=== PATIENT | male | born 1935 | race Caucasian/White ===

== ENCOUNTER → 2017-03-25 16:19 | Outpatient (CLI) | payer MEDICARE, BC ==
[2013-07-15 05:47] VITALS: BMI 27.2
[~2017-03-25 16:19] MED LIST: ASPIRIN325 MG PO; LEVAQUIN750 MG PO; LIPITOR10 MG PO; NAPROSYN500 MG PO; PLAVIX75 MG PO; PRAVACHOL10 MG PO; SAFFRON; VITAMIN D31000 UNIT PO; [UNRECOGNIZED DRUG - REMARK] PO
[2017-03-25 19:09] LABS: CHOL - HDL RATIO 4.1 ratio (2.3-4.9); LDL-HDL RATIO 2.6 ratio (1.5-3.5)
[2017-04-08 11:49] VITALS: BMI 28.3
== END | disposition home or self-care (01) ==
LOC: D.LABREF 16:19
PROVIDERS: Internal Medicine Interventional Cardiology
DX: E78.5 Hyperlipidemia, unspecified (principal)

== ENCOUNTER 2017-04-08 11:21 | Outpatient (CLI) | payer MEDICARE, BC ==
[~2017-04-08] VITALS: Ht 180.3 cm; Wt 92.3 kg
--- NOTE | ~2017-04-08 | OP ---
PATIENT NAME: ANTWON TIRADO MEDICAL RECORD: [id number] :37 LOCATION:D.CAT ADMISSION DATE: SURGEON: TOBI HAMILTON MD DATE OF OPERATION: 04/08/2017 PROCEDURE: Left heart catheterization, selective coronary angiography, right femoral artery approach. CATHETERS: A 5-Belizean sheath, 5/4 left and right Carlton, 5/4 pig. The procedure was well tolerated. The patient returned to osorio, sheath removed. ExoSeal device placed. FINDINGS: Left ventriculograph in 30-degree DWO view, mild global hypokinesis. Overall, function reduced, estimated EF 40%. CORONARY ANATOMY: LEFT MAIN: Left main is free of disease. LAD: Fills for a short period and is totally occluded. CIRCUMFLEX: Has a distal stenosis of about 80%. This is a left dominant system. RIGHT CORONARY ARTERY: Rudimentary, BAIG to the LAD is widely patent throughout its course without evidence of post-anastomotic stenosis. PLAN: Intervention of the circumflex momentarily. DESCRIPTION OF PROCEDURE: A 5-Belizean sheath was changed for a 6-Belizean sheath. We tried 2 separate guide catheters. We were able to transverse the lesion in the circumflex of 80% with a Whisper wire and a 3.0 x 15 mm Ellsworth balloon up to 12 atmospheres for 45 seconds. This reduced to 20%. Stents were made deployed with stent including changing guide catheters using maya wire technique, we were unable to deploy the stent. IMPRESSION: Successful FEEDER OPERATOR stenting of the circumflex lesion. COMPLICATIONS: None. ESTIMATED BLOOD LOSS: Minimal placed on Plavix was loaded in the lab. Sheath was closed with ExoSeal device. TRANSINT:[id number] Voice Confirmation ID: [id number] DOCUMENT ID: [id number] TOBI HAMILTON MD at 1144 CC: [id number] DICTATION DATE: 04/08/17 1401 GOLF COURSE ARCHITECT: 04/08/17 1522 [facility] CLI 04/08/[address] [address]
--- NOTE | ~2017-04-08 | HEMODYNAMI ---
PATIENT:ANTWON TIRADO MEDICAL RECORD: [id number] : 37 LOCATION:KAREN ADMISSION DATE: 04/08/17 Generatedon:04/08/201714:02 Patient name: ANTWON TIRADO Patient #: [id number] : 1935 Date of study: 04/08/2017 Page: Of Hemodynamic Procedure Report Patient Data Patient Demographics Procedure consent was obtained First Name: ANTWON Gender: Male Last Name: CELESTINO : 1935 [facility] Initial: LOW Age: 81 year(s) Patient #: [id number] Race: SSN: [id number] Additional ID: [id number] Contact details Address: [address] [place] [address] STREET State: [place] City: [place] Zip code: [address] Past Medical History Allergies Allergen Reaction Date Comments Reported Other allergy 04/08/2017 Penicillin, Tylenol, Tetanus, Chocolate Admission Admission Data Admission Date: 04/08/2017 Admission Time: 11:21 Lab Results Lab Result Date: 04/08/2017 Lab Result Time: 0:00 Biochemistry Name Units Result Min Max BUN mg/dl 16 --(---*)-- 7 18 Creatinine mg/dl 1 --(--*-)-- 0.6 1.3 CBC Name Units Result Min Max Hemoglobin g/dl 14.6 --(-*--)-- 13.5 17.5 Procedure Procedure Types Cath Procedure Diagnostic Procedure LHC LHC w/Coronaries w/Grafts PCI Procedure PTCA PTCA Initial Miscellaneous Procedures Moderate Sedation up to 45 minutes Procedure Description Procedure Date Procedure Date: 04/08/2017 Procedure Start Time: 13:20 Procedure End Time: 13:58 Procedure Staff Name Function Wili Kendrick MD Performing Physician Lina Herrera RT Monitor Chelsey Weathers RT Scrub Sandie Muse RN Nurse Procedure Data Cath Procedure Fluoroscopy Diagnostic fluoroscopy Total fluoroscopy Time: time: 12.6 min 12.6 min Diagnostic fluoroscopy Total fluoroscopy dose: dose: 2195 mGy 2195 mGy Contrast Material Contrast Material Type Amount (ml) Isovue 300 134 Entry Location Entry Primary Successful Side Size Upsize Upsize Entry Closure Succes sful Closure Location (Fr) 1 (Fr) 2 (Fr) Remarks Device Remarks Femoral Right 5 Fr 6 Fr Exoseal artery Short Estimated blood loss: 5 ml Diagnostic catheters Device Type Used For End Catheter Placement MULTIPACK JL 4.0 5Fr Left Coronary catheter Angiography MULTIPACK 3DRC 5Fr Right Coronary catheter Angiography MULTIPACK Pigtail 5 Fr LV Angiography catheter Procedure Complications No complications Procedure Medications Medication Administration Route Dosage 0.9% NaCl I.V. 100 ml/hr Oxygen NC 2 l/min Lidocaine 2% added to field 20 Heparin Flush Bag added to field 2 bags (1000units/500ml NS) Fentanyl I.V. 50 mcg Versed I.V. 1 mg Versed I.V. 1 mg Fentanyl I.V. 50 mcg Versed I.V. 1 mg Versed I.V. 1 mg Heparin Bolus I.V. 5000 units Integrilin (Bolus I.V. 8.5 ml 2mg/ml) Plavix P.O. 300 mg Hemodynamics Rest HGB: 14.6 (g/dl) Heart Rate: 75 (bpm) Pressure Samples Time Site Value (mmHg) Purpose Heart Use Rate(bpm) 13:27 LV 129/2,4 Snapshot 69 Gradients Valve Time Site Site Mean SEP/DFP Peak To Heart Use 1 2 (mmHg) (sec/min) Peak Rate (mmHg) (bpm) Aortic 13:28 LV AO 68 Snapshots Pre Cath Intra NCS Post Cath Vital Signs Time Heart Resp SPO2 etCO2 NIBP (mmHg) Rhythm Pain Sedation Rate (ipm) (%) (mmHg) Status Level (bpm) 13:03:44 78 16 96 0 Measuring NSR 0 (11) 10(A) , No pain 13:03:46 76 16 96 0 154/87(123) NSR 0 (11) 10(A) , No pain 13:08:10 68 23 98 34.2 145/80(124) NSR 0 (11) 10(A) , No pain 13:12:26 72 16 99 24.3 141/82(129) NSR 0 (11) 10(A) , No pain 13:16:42 72 14 98 141/77(110) NSR 0 (11) 10(A) , No pain 13:21:00 68 17 97 128/72(103) NSR 0 (11) 10(A) , No pain 13:25:10 86 16 94 136/84(116) NSR 0 (11) 10(A) , No pain 13:29:28 68 19 94 121/63(95) NSR 0 (11) 10(A) , No pain 13:33:40 67 18 97 116/67(94) NSR 0 (11) 9(A) , No pain 13:37:52 65 15 97 110/62(85) NSR 0 (11) 9(A) , No pain 13:42:00 62 16 97 117/66(87) NSR 0 (11) 9(A) , No pain 13:46:10 63 14 97 116/64(92) NSR 0 (11) 9(A) , No pain 13:50:20 63 16 97 108/67(88) NSR 0 (11) 9(A) , No pain 13:54:28 62 16 97 114/64(94) NSR 0 (11) 10(A) , No pain 13:58:38 62 16 97 113/64(86) NSR 0 (11) 10(A) , No pain Medications Time Medication Route Dose Verified Delivered Reason Not es Effectiveness by by 13:02:35 0.9% NaCl I.V. 100ml/hr Wili Hooper used for [facility]. Santi Muse RN procedure 13:02:46 Oxygen NC 2 l/min Wili Hooper Per physician St. Santi Muse RN, MD 13:02:55 Lidocaine 2% added 20ml Wili Bahy used for to vial [facility]. Santi Muse RN procedure field OVALLE 13:03:01 Heparin Flush added 2 bags Wili Hooper used for Bag to [facility] Santi Muse RN procedure (1000units/500ml field OVALLE NS) 13:16:16 Fentanyl I.V. 50 mcg Wili Hooper for sedation St. Santi Muse RN, MD 13:16:24 Versed I.V. 1 mg Wili Hooper for sedation St. Santi Muse RN, MD 13:18:48 Versed I.V. 1 mg Wili Pachecofany for sedation [facility]. Santi Muse RN, MD 13:18:57 Fentanyl I.V. 50 mcg Wili Hooper for sedation St. Santi Muse RN, MD 13:21:08 Versed I.V. 1 mg Wili Hooper for sedation St. Santi Muse RN, MD 13:23:10 Versed I.V. 1 mg Wili Hooper for sedation St. Santi Muse RN, MD 13:31:22 Integrilin I.V. 8.5 ml Wili Hooper for was te (Bolus 2mg/ml) St[facility] Santi Muse RN antiplatelet 1.5ml MD therapy 13:32:22 Heparin Bolus I.V. 5000 Wili Hooper for juan ified units St. Santi Muse RN anticoagulation by MD wang 13:59:52 Plavix P.O. 300 mg Wili Hooper for [facility] Santi Muse RN antiplatelet therapy Procedure Log Time Note 12:49:34 Informed consent obtained and on chart 12:49:40 Diagnostic Cath Status : Elective 12:50:06 Lina Herrera RT(R) sent for patient. Start room use. 12:50:08 Time tracking: Regular hours 12:50:12 Plan of Care:Hemodynamics will remain stable., Cardiac rhythm will remain stable., Comfort level will be maintained., Respiratory function will remain adequate., Patient/ family verbilizes understanding of procedure., Procedure tolerated without complication., Recovers from procedure without complications.. 12:55:24 Patient received from Pre/Post Procedure Room to CCL 2 Alert and oriented. Tansferred to table in Supine position. 12:55:25 Warm blankets applied, and anabelle hugger turned on for patient comfort. 12:55:26 Correct patient and procedure confirmed by team. 12:55:26 ECG and BP/O2 sat monitors applied to patient. 13:01:55 Vital chart was started 13:02:35 0.9% NaCl 100ml/hr I.V. was administered by Sandie Muse RN; used for procedure; 13:02:46 Oxygen 2 l/min NC was administered by Sandie Muse RN; Per physician; 13:02:55 Lidocaine 2% 20ml vial added to field was administered by Sandie Muse RN; used for procedure; 13:03:01 Heparin Flush Bag (1000units/500ml NS) 2 bags added to field was administered by Sandie Muse RN; used for procedure; 13:05:18 Baseline sample Acquired. 13:06:31 Full Disclosure recording started 13:06:45 H&P Date Dictated: 04/07/2017 Within 30 days and on chart., H&P Addendum completed by physician on day of procedure. (MUST COMPLETE FOR ALL OUTPATIENTS). 13:06:47 Pre-procedure instructions explained to patient. 13:06:47 Pre-op teaching completed and patient verbalized understanding. 13:06:49 Family in waiting room. 13:06:53 Patient NPO since Midnight. 13:07:40 Patient allergic to Other allergyPenicillin, Tylenol, Tetanus, Chocolate 13:07:56 Is the patient allergic to Iodine/contrast media? No. 13:08:04 Was the patient premedicated? No 13:08:08 Is patient on blood thinner?No 13:08:11 Patient diabetic? No. 13:08:17 Previous problem with sedation/anesthesia? No ? 13:08:20 Snore? No 13:08:21 Sleep apnea? No 13:08:22 Deviated septum? No 13:08:23 Opens mouth fully? Yes 13:08:24 Sticks out tongue? Yes 13:08:25 Airway obstruction? No ? 13:08:30 Dentures? Yes in tight 13:08:34 Pre procedure: right dorsailis pedis pulse 1+ Palpable, but thready & weak; easily obliterated 13:08:39 Pre procedure: left dorsailis pedis pulse 1+ Palpable, but thready & weak; easily obliterated 13:08:43 Patient pain scale 0/10 ?. 13:08:59 IV patent on arrival in left forearm with 0.9% NaCl at [facility]. 13:12:51 Lab Result : BUN 16 mg/dl 13:12:51 Lab Result : Hemoglobin 14.6 g/dl 13:12:51 Lab Result : Creatinine 1 mg/dl 13:12:54 Lab results completed and on chart. 13:13:11 Right groin area was prepped with chlora-prep and draped in sterile fashion 13:13:11 Alarms reviewed by R. N. 13:13:12 Sharps counted by scrub and verified by R.N. 13:13:14 Physician arrived 13:13:14 --------ALL STOP TIME OUT------ 13:13:15 Final Timeout: patient, procedure, and site verified with staff and physician. All members of the team are in agreement. 13:13:17 Right groin site verified by team. 13:13:19 Physical assessment completed. ASA score P 2 - A patient with mild systemic disease as per Wili Kendrick MD. 13:13:23 Sedation plan: IV Moderate Sedation Medication:Versed, Fentanyl 13:13:27 Use device set Femoral Dx 13:13:28 ACIST Syringe (90944) opened to sterile field. 13:13:28 Bag Decanter (2002S) opened to sterile field. 13:13:28 Medline Cath Pack ([id number]) opened to sterile field. 13:13:29 SHEATH 5FR Warrens (RQJ579) opened to sterile field. 13:13:30 DIAGNOSTIC WIRE .035 260cm J wire (377549) opened to sterile field. 13:13:31 ACIST Hand Control (74153) opened to sterile field. 13:13:31 ACIST Manifold (34002) opened to sterile field. 13:13:32 DIAGNOSTIC Multipack 5Fr catheter set (FQ2265) opened to sterile field. 13:13:33 Tegaderm 4 x 4 (1626W) opened to sterile field. 13:16:16 Fentanyl 50 mcg I.V. was administered by Sandie Muse RN; for sedation; 13:16:24 Versed 1 mg I.V. was administered by Sandie Muse RN; for sedation; 13:18:48 Versed 1 mg I.V. was administered by Sandie Muse RN; for sedation; 13:18:57 Fentanyl 50 mcg I.V. was administered by Sandie Muse RN; for sedation; 13:20:06 Procedure started. 13:20:16 Local anesthetic to right femoral artery with Lidocaine 2% by Wili Kendrick MD.INITIAL ACCESS ONLY 13:20:29 A 5 Fr sheath was inserted into the Right Femoral artery 13:21:08 Versed 1 mg I.V. was administered by Sandie Muse RN; for sedation; 13:21:21 A MULTIPACK JL 4.0 5Fr catheter was advanced over the wire and used for Left Coronary Angiography. 13:21:53 LCA angiography performed. 13:22:50 Injector settings: Ml/sec: 3, Volume: 6, 13:23:10 Versed 1 mg I.V. was administered by Sandie Muse RN; for sedation; 13:23:18 Catheter removed. 13:23:26 A MULTIPACK 3DRC 5Fr catheter was advanced over the wire and used for Right Coronary Angiography. 13:24:36 RCA angiography performed. 13:24:39 Injector settings: Ml/sec: 3, Volume: 6, 13:25:01 BAIG angiography performed. 13:25:26 Injector settings: Ml/sec: 3, Volume: 6, 13:26:11 Catheter removed. 13:26:16 A MULTIPACK Pigtail 5 Fr catheter was advanced over the wire and used for LV Angiography. 13:27:30 LV hemodynamics recorded. 13:27:31 LV gram done using DOW 13:27:34 Injector settings: Ml/sec: 5, Volume: 15, 13:28:17 EF : 40 % 13:29:43 WHISPER 300cm guide wire ([id number]) opened to sterile field. 13:29:45 SHEATH 6FR Warrens (OBH033) opened to sterile field. 13:29:45 INFLATOR Merit BasixCompak (TO7734) opened to sterile field. 13:29:46 GUIDE 6FR EBU 3.5 catheter (GF2YMS32) opened to sterile field. 13:30:07 Catheter removed. 13:30:08 Proceeding to intervention. 13:30:16 Sheath upsized to a 6 Fr Short. 13:30:25 6 Fr ebu 3.5 guide catheter was inserted over the wire 13:30:53 whisper wire advanced. 13:30:54 Wire advanced across lesion. 13:31:22 Integrilin (Bolus 2mg/ml) 8.5 ml I.V. was administered by Sandie Muse RN; for antiplatelet therapy; waste 1.5ml 13:32:22 Heparin Bolus 5000 units I.V. was administered by Sandie Muse RN; for anticoagulation; verified by 13:36:46 The INTEGRITY OTW 3.5 X 12 stent ([id number]) was advanced then removed because of failure to cross lesion 13:40:31 The EMERGE OTW 3.0 x 15 stent ([id number]) was advanced and then removed because of failure to cross lesion 13:40:39 WHISPER 300cm guide wire ([id number]) opened to sterile field. 13:40:50 whisper wire advanced. 13:43:39 Wire removed. 13:43:42 Guide catheter removed. 13:43:57 GUIDE 6FR EBU 4.0 guide catheter ([id number]) opened to sterile field. 13:46:20 tech notes one whisper wire damaged; new whisper wire opened 13:46:26 WHISPER 300cm guide wire ([id number]) opened to sterile field. 13:48:27 Wire removed. 13:48:50 CHOICE PT Extra Support J 300cm guide wire ([id number]) opened to sterile field. 13:49:06 choice pt wire advanced. 13:49:56 Inflation number: 1 A EMERGE OTW 3.0 x 15 stent ([id number]) was prepped and advanced across the Dist CX, then inflated to 10 RACHEL for 0:30 (min:sec). 13:51:46 Balloon removed over the wire. 13:53:34 whisper wire advanced 13:54:53 The EMERGE OTW 3.0 x 15 stent ([id number]) was advanced and then removed because of failure to cross lesion 13:54:59 Balloon removed over the wire. 13:54:59 Wire removed. 13:55:00 Guide catheter removed. 13:55:59 EXOSEAL 6Fr (EX600) opened to sterile field. 13:56:09 Sheath removed intact; hemostasis achieved with Exoseal to the Right Femoral artery. 13:56:11 Procedure ended.(Physican Out) 13:56:54 Fluoroscopy time 12.60 minutes. 13:57:00 Fluoroscopy dose: 2195 mGy 13:57:00 Flurop Dose total: 2195 13:57:16 Contrast amount:Isovue 300 134ml. 13:57:52 Sharps counted by scrub and verified by R.N. 13:57:54 Insertion/operative site no bleeding no hematoma. 13:57:57 Post-op/insertion site Right Femoral artery dressed using a 4 x 4 and Tegaderm. 13:58:00 Post right femoral artery:stable 13:58:01 Post Procedure Pulses reassessed and unchanged 13:58:05 Post procedure rhythm: unchanged. 13:58:08 Estimated blood loss: 5 ml 13:58:10 Post procedure instruction explained to patient.Patient verbalizes understanding. 13:58:10 Patient needs reinforcement of post procedure teaching. 13:58:34 Procedure type changed to Cath procedure, Diagnostic procedure, LHC, LHC w/Coronaries w/Grafts, PCI procedure, PTCA, PTCA Initial, Miscellaneous Procedures, Moderate Sedation up to 45 minutes 13:58:34 Procedure and supply charges have been captured, reviewed, submitted and are correct. 13:58:39 Procedure Complication : No complications 13:58:41 Vital chart was stopped 13:58:42 See physician's report for complete and final results. 13:58:44 Report given to Pre/Post Procedure Room. 13:58:47 Patient transfered to Pre/Post Procedure Room with Stretcher. 13:58:50 Procedure ended. 13:58:50 Full Disclosure recording stopped 13:59:02 ACC-PCI Only Patient was given prescriptions, or instructed by Wili Kendrick MD to start/continue the following medications upon discharge: Plavix 13:59:04 End room use (Document Last) 13:59:52 Plavix 300 mg P.O. was administered by Sandie Muse RN; for antiplatelet therapy; Intervention Summary Intervention Notes Time ActionType Lesion and Equipment Action# Pressure Duration Attributes Used 13:36:46 Discard INTEGRITY Stent OTW 3.5 X 12 stent ([id number]) 13:40:31 Discard EMERGE OTW Balloon 3.0 x 15 stent ([id number]) 13:49:56 Inflate Dist CX EMERGE OTW 1 10 00:30 balloon 3.0 x 15 stent ([id number]) 13:54:53 Discard EMERGE OTW Balloon 3.0 x 15 stent ([id number]) Device Usage Item Name Manufacture Quantity Catalog Number Hospital Part Current Min imal Lot# / Charge Number Stock Stock Serial# Code ACIST Acist 1 65642 435411 140391 133722 20 Syringe Medical (72801) Systems Inc Bag Decanter Microtek 1 948732 51959 173960 5 () Medical Inc. Medline Cath Cardinal 1 [id number] 106399 23857 135393 5 Pack Health ([id number]) SHEATH 5FR Terumo 1 PRR885 968206 835260 907262 40 Warrens (RGN665) DIAGNOSTIC St [place] 1 303720 763993 972324 208980 30 WIRE .035 260cm J wire (642830) ACIST Hand Acist 1 92973 137153 176022 315894 5 Control Medical (57694) Systems Inc ACIST Acist 1 20713 747243 205715 116816 5 Manifold Medical (73337) Systems Inc DIAGNOSTIC Cardinal 1 RL2511 418937 76600 373825 30 Multipack Health 5Fr catheter set (RD8919) Tegaderm 4 x 3M 1 1626W 901037 572747 573342 5 4 (1626W) MULTIPACK JL Cardinal 1 889120 5 4.0 5Fr Health catheter MULTIPACK Cardinal 1 620667 5 3DRC 5Fr Health catheter MULTIPACK Cardinal 1 779213 5 Pigtail 5 Fr Health catheter WHISPER Kimbrough 3 [id number] 006498 860139 589518 5 300cm guide Vascular wire ([id number]) SHEATH 6FR Terumo 1 EMK584 375418 857681 106260 40 Warrens (WAZ645) INFLATOR Squid Facil 1 HX5490 437321 078703 531269 15 Squid Facil Medical BasixCompak (BQ5506) GUIDE 6FR Medtronic 1 DT0TLT94 243456 07138 126762 3 EBU 3.5 catheter (VD1FCX97) INTEGRITY Medtronic 1 [id number] 726090 406334 4 [id number] OTW 3.5 X 12 stent ([id number]) EMERGE OTW [place] 1 [id number] 422574 546060 790436 5 [id number] 3.0 x 15 Scientific stent ([id number]) GUIDE 6FR Medtronic 1 QV2MZC74 786135 43766 568944 1 EBU 4.0 guide catheter (IZ4VGL57) CHOICE PT Alexandria 1 [id number] 374174 902052 982566 5 [id number] Extra Scientific Support J 300cm guide wire (6381960O2) EXOSEAL 6Fr Cardinal 1 EX600 628026 215490 664329 10 (EX600) Health Signature Audit [place] Stage Time Signature Unsigned Intra-Procedure 04/08/2017 Lina Herrera 2:02:13 PM RT(R) Signatures Monitor : Lina Herrera RT Signature : Date : Time : [place] [id number] [place] [address]
[~2017-04-08 11:21] MED LIST changes: -LIPITOR10 MG PO; -SAFFRON; -VITAMIN D31000 UNIT PO
[2017-04-08] MEDS ORDERED: VITAMIN D31000 UNIT PO (11:36)
[2017-04-08] MEDS ORDERED: SAFFRON (11:37)
[2017-04-08 11:49] VITALS: BP 167/82; Ht 180.3 cm; Wt 92.3 kg
[2017-04-08 12:03] LABS: BASOPHILS 0.1 % (0-2); EOSINOPHILS 3.6 % (0-7); HEMATOCRIT 44.6 % (42.0-54.0); HEMOGLOBIN 14.6 g/dL (13.5-17.5); IMMATURE GRANULOCYTES 0.3 % (0-5); LYMPHOCYTES 36.9 % (15-50); MCH 31.1 pg (26.0-34.0); MCHC 32.7 g/dL (31.0-37.0); MCV 94.9 fL (80.0-100.0); MEAN PLATELET VOLUME 10.6 fL (7.4-10.4); MONOCYTES 5.2 % (2-11); NEUTROPHILS 53.9 % (40-80); PLATELET COUNT 161 10x3/uL (130-400); RDW 13.5 % (11.5-14.5); WBC 7.3 10x3/uL (4.8-10.8)
[2017-04-08 12:11] LABS: CALC OSMOLALITY 279 mosm/kg (275-300); CALCIUM 10.3 mg/dL (8.5-10.1); CARBON DIOXIDE 28.4 mmol/L (21.0-32.0); CHLORIDE - SERUM 103 mmol/L (98-107); GLUCOSE 114 mg/dL (74-106); POTASSIUM - SERUM 3.9 mmol/L (3.5-5.1); SODIUM 139 mmol/L (136-145); UREA NITROGEN 16 mg/dL (7-18); eGFR NON AFRICAN AMERICAN 76 mL/min (90-120)
[2017-04-08] MEDS ORDERED: PLAVIX75 MG PO (14:25)
[2017-04-08] MEDS ORDERED: LIPITOR10 MG PO (14:27)
== END 2017-04-08 18:00 | disposition home or self-care (01) ==
LOC: D.CATH 11:21
PROVIDERS: Internal Medicine Interventional Cardiology
DX: I25.119 Atherosclerotic heart disease of native coronary artery with unspecified angina pectoris (principal); Z01.812 Encounter for preprocedural laboratory examination; Z95.1 Presence of aortocoronary bypass graft

== ENCOUNTER → 2018-06-21 10:16 | Outpatient (CLI) | payer MEDICARE, BC ==
[2017-04-08 11:49] VITALS: BMI 28.3
[~2018-06-21 10:16] MED LIST changes: +LIPITOR10 MG PO; +SAFFRON; +VITAMIN D31000 UNIT PO
--- NOTE | 2018-06-24 12:17 | EC ---
PATIENT:ANTWON TIRADO DATE OF SERVICE: 06/21/18 SEX: M MEDICAL RECORD: [id number] DATE OF : 37 LOCATION:[facility] AGE OF PATIENT: 82 ADMISSION DATE: 06/21/18 REFERRING PHYSICIAN: INTERPRETING PHYSICIAN: TOBI HAMILTON MD ECHOCARDIOGRAM REPORT ECHO CHARGES 4 ECHO COMPLETE Date: 06/21/18 CLINICAL DIAGNOSIS: CARDIOMYOPATHY H/O HTN/CAD/CABG/PACEMAKER ECHOCARDIOGRAPHIC MEASUREMENTS (adult normal given) AC root (d.<3.7cm) 3.1 cm LV Septum d (<1.2 cm> 1.3 cm Valve Excursion 1.3 cm LV Septum (systole) 2.1 cm Left Atria (s.<4.0cm> 5.5 cm LVPW d(<1.2cm) 1.2 cm RV (d.<2.3cm) 2.8 cm LVPW (sytole) 1.7 cm LV diastole(<5.6CM) 7.2 cm MV E-F(>70mm/sec) cm LV systole 5.8 cm LVOT Diameter 2.3 cm MV exc.(>10mm) cm Est.ejection fraction (50-75%) % DOPPLER: LVIT cm/sec A 156 cm/sec E 60.0 cm/sec LA cm/sec RVSP 34.3 mmHg LVOT 72.0 cm/sec AOP1/2T m/s Asc. Ao 200 cm/sec RVOT 42.0 cm/sec RA cm/sec PA 87.0 cm/sec AV Gradient Peak 16.0 mmHg AV Mean 8.1 mmHg AV Area 1.6 cm MV Gradient Peak 11.0 mmHg MV Mean 2.2 mmHg MV Area cm COMMENTS: OP - HC Rn Cardiology: 1 CHRISTINA PIERO Framing Mill Operator Helper: 3 Dr. Kendrick TAPE# PACS Pericardial Effusion N DATE OF SERVICE: Adequate 2D, color flow, spectral Doppler, and M-Mode. LVH is present. LV internal dimension is moderate dilated at 5.0 cm. LV is globally hypokinetic, reduced EF, estimated at 20% to 25%. Aortic valve is sclerosed without evidence of stenosis on Doppler interrogation. Left atrium dilated at 5.5 cm. Mitral valve shows no prolapse. Mild MR. Right-sided chamber size is grossly normal. Moderate TR. TRANSINT:[id number] Voice Confirmation ID: [id number] DOCUMENT ID: [id number] ECHOCARDIOGRAM REPORT [id number] ANTWON TIRADO,TOBI Crowe MD at 1217 CC: [id number] DICTATION DATE: 06/21/18 1519 HANDLE MACHINE OPERATOR: 06/22/18 0156 DEP CLI 06/21/18 [place] [id number]
== END | disposition home or self-care (01) ==
LOC: D.HCCARDIO 10:00
PROVIDERS: ATTEND Internal Medicine Interventional Cardiology
DX: I10 Essential (primary) hypertension (principal)

== ENCOUNTER 2019-02-01 02:02 | Outpatient (CLI) | payer MEDICARE, BC ==
[~2019-02-01] VITALS: Ht 180.3 cm; Wt 86.4 kg
--- NOTE | ~2019-02-01 | HEMODYNAMI ---
PATIENT:ANTWON TIRADO MEDICAL RECORD: [id number] : 37 [facility].[address] [facility]# [id number] ADMISSION DATE: 02/01/19 Generatedon:02/01/201914:37 Patient name: ANTWON TIRADO Patient #: [id number] : 1935 Date of study: 02/01/2019 Page: Of Hemodynamic Procedure Report Patient Data Patient Demographics Procedure consent was obtained First Name: ANTWON Gender: Male Last Name: CELESTINO : 1935 [facility] Initial: LOW Age: 83 year(s) Patient #: [id number] Race: SSN: [id number] Additional ID: [id number] Contact details Address: [address] [place] [address] [address]REET State: [place] City: [place] Zip code: [address] Past Medical History Allergies Allergen Reaction Date Comments Reported Other allergy 04/08/2017 Penicillin, Tylenol, Tetanus, Chocolate Other allergy 02/01/2019 penicillins, acetametaphin, tetanus vaccine, chocolate Admission Admission Data Admission Date: 02/01/2019 Admission Time: 2:32 Admit Source: Other Insurance Payor: Medicare, Room #: D.2116 Private health insurance Height (in.): 70.87 BSA: 2.06 (m2) Height (cm.): 180 BMI: 26.54 (kg/m2) Weight (lbs.): 189.6 Weight (kg.): 86 Lab Results Lab Result Date: 02/01/2019 Lab Result Time: 0:00 Biochemistry Name Units Result Min Max BUN mg/dl 17 --(---*)-- 7 18 Creatinine mg/dl 1.3 --(---*)-- 0.6 1.3 eGFR ml/min 56 *-(----)-- 90 120 NONAFRICAN CBC Name Units Result Min Max Hemoglobin g/dl 14.6 --(-*--)-- 13.5 17.5 Procedure Procedure Types Cath Procedure Diagnostic Procedure C [facility] w/Coronaries w/Grafts FFR/IVUS FFR Initial Sedation Charges Moderate Sedation up to 30 minutes PCI Procedure Coronary Stent Coronary Stent Initial Procedure Description Procedure Date Procedure Date: 02/01/2019 Procedure Start Time: 11:27 Procedure End Time: 11:55 Procedure Staff Name Function Lina Herrera RT Monitor Leo Chris MD Performing Physician Chelsey Weathers RT Scrub Donna Wilson RN Nurse Indication Abnormal enzymes Procedure Data Cath Procedure Fluoroscopy Diagnostic fluoroscopy Total fluoroscopy Time: 6.5 time: 6.5 min min Diagnostic fluoroscopy Total fluoroscopy dose: dose: 1203 mGy 1203 mGy Contrast Material Contrast Material Type Amount (ml) Isovue 300 114 Entry Location Entry Primary Successful Side Size Upsize Upsize Entry Closure Succes sful Closure Location (Fr) 1 (Fr) 2 (Fr) Remarks Device Remarks Femoral Right 6 Fr Exoseal artery Short Estimated blood loss: 5 ml Diagnostic catheters Device Type Used For End Catheter Placement MULTIPACK Pigtail 5 Fr LV Angiography catheter MULTIPACK JL 4.0 5Fr Left Coronary catheter Angiography MULTIPACK 3DRC 5Fr Multi-vessel catheter Angiography Procedure Complications No complications Procedure Medications Medication Administration Route Dosage 0.9% NaCl I.V. 100 ml/hr Oxygen etCO2 Nasal cannula 2 l/min Lidocaine 2% added to field 20 Heparin Flush Bag added to field 2 bags (1000units/500ml NS) Versed I.V. 2 mg Fentanyl I.V. 50 mcg Heparin Bolus I.V. 4000 units Integrilin (Bolus I.V. 6.9 ml 2mg/ml) Integrilin (Bolus wasted 3.1 ml 2mg/ml) Lopressor I.V. 5 mg Fentanyl I.V. 50 mcg Hemodynamics Rest BSA: 2.06 (m2) HGB: 14.6 (g/dl) O2 Consumption: Estimated: 242.31 (ml/min) O2 Co nsumption indexed: Estimated:117.63 (ml/min/m) Heart Rate: 80 (bpm) Snapshots Pre Cath Intra NCS Post Cath Vital Signs Time Heart Resp SPO2 etCO2 NIBP (mmHg) Rhythm Pain Sedation Rate (ipm) (%) (mmHg) Status Level (bpm) 11:14:40 77 15 98 25.6 171/91(135) Paced 0 (11) 10(A) , No pain 11:18:50 69 15 98 32.4 130/90(118) Paced 0 (11) 10(A) , No pain 11:23:04 70 13 97 22.6 146/69(116) Paced 0 (11) 9(A) , No pain 11:27:22 70 13 98 21.8 151/76(124) Paced 0 (11) 9(A) , No pain 11:31:36 69 14 97 19.7 142/92(104) Paced 0 (11) 9(A) , No pain 11:35:52 71 13 97 9.8 150/80(120) Paced 0 (11) 10(A) , No pain 11:40:10 73 12 97 20.3 148/81(122) Paced 0 (11) 9(A) , No pain 11:44:28 74 11 97 22.6 139/77(115) Paced 0 (11) 10(A) , No pain 11:48:44 72 12 95 8.2 154/77(127) Paced 0 (11) 10(A) , No pain 11:53:04 69 12 95 8.2 150/80(129) Paced 0 (11) 10(A) , No pain Medications Time Medication Route Dose Verified Delivered Reason Notes Effectiveness by by 11:10:51 0.9% NaCl I.V. 100 Leo Donna used for ml/hr Dot Wilson supervisor commissary production 11:10:59 Oxygen etCO2 2 Leo Donna used for Nasal l/min Dot Wilson procedure cannula RN 11:11:04 Lidocaine 2% added 20ml Leo Bailey for local to vial Dot Chris MD anesthetic field 11:11:08 Heparin Flush added 2 Leo Leo used for Bag to bags Dot Chris MD procedure (1000units/500ml field NS) 11:21:31 Versed I.V. 2 mg Leo Donna for sedation Dot Wilson RN 11:21:41 Fentanyl I.V. 50 Leo Donna for sedation mcg Dot Wilson RN 11:33:53 Heparin Bolus I.V. 4000 Leo Hinesyla for verif ied units Dot Wilson anticoagulation with Dr. RAMON Chris 11:34:11 Integrilin I.V. 6.9 Leo Donna for (Bolus 2mg/ml) ml Dot Wilson antiplatelet RN therapy 11:34:23 Integrilin wasted 3.1 Leo Sanchesa for (Bolus 2mg/ml) ml Dot Wilson antiplatelet RN therapy 11:34:30 Lopressor I.V. 5 mg Leo Sanchesa used for Dot Wilson supervisor commissary production 11:36:32 Fentanyl I.V. 50 Leo Hinesyla for sedation mcg Dot Wilson equipment specialist Log Time Note 11:06:00 Chelsey Weathres RT(R) sent for patient. Start room use. 11:06:43 3a) 45-59 Moderately reduced kidney function. 11:06:55 Maximum allowable contrast dose (3.7 X eGFR X 0.75)155 ml. 11:07:06 Procedure Status Urgent Heart Cath (IP). 11:07:18 Diagnostic Cath Status : Urgent 11:07:49 Indication : Abnormal enzymes 11:09:18 Patient Height : 70.87 inches 11:09:21 Patient Weight : 189.6 lbs 11:09:26 Admit Source: Other 11:09:31 Insurance Payor : Private health insurance, Medicare 11:10:51 0.9% NaCl 100 ml/hr I.V. was administered by Donna Wilson RN; used for procedure; Verbal order read back and verified. 11:10:59 Oxygen 2 l/min etCO2 Nasal cannula was administered by Donna Wilson RN; used for procedure; Verbal order read back and verified. 11:11:04 Lidocaine 2% 20ml vial added to field was administered by Leo Chris MD; for local anesthetic; Verbal order read back and verified. 11:11:08 Heparin Flush Bag (1000units/500ml NS) 2 bags added to field was administered by Leo Chris MD; used for procedure; Verbal order read back and verified. 11:13:05 Lab Result : eGFR NONAFRICAN 56 ml/min 11:13:05 Lab Result : Hemoglobin 14.6 g/dl 11:13:05 Lab Result : BUN 17 mg/dl 11:13:05 Lab Result : Creatinine 1.3 mg/dl 11:13:08 Time tracking: Regular hours (M-F 7:00 - 5:00) 11:13:13 Plan of Care:Hemodynamics will remain stable., Cardiac rhythm will remain stable., Comfort level will be maintained., Respiratory function will remain adequate., Patient/ family verbilizes understanding of procedure., Procedure tolerated without complication., Recovers from procedure without complications.. 11:13:20 Patient received from Med II to CCL 2 Alert and oriented. Tansferred to table in Supine position. 11:13:22 Signed procedure consent form obtained from patient. 11:13:25 Warm blankets applied, and anabelle hugger turned on for patient comfort. 11:13:26 Correct patient and procedure confirmed by team. 11:13:27 ECG and BP/O2 sat monitors applied to patient. 11:13:28 Vital chart was started 11:13:30 Baseline sample Acquired. 11:13:33 Full Disclosure recording started 11:13:38 H&P Date Dictated: 02/01/2019 New H&P dictated by physician.. 11:13:51 Pre-procedure instructions explained to patient. 11:13:52 Pre-op teaching completed and patient verbalized understanding. 11:13:54 Family in waiting room. 11:13:55 Patient NPO since Dinner. 11:14:33 Patient allergic to Other allergypenicillins, acetametaphin, tetanus vaccine, chocolate 11:14:35 Is the patient allergic to Iodine/contrast media? No. 11:14:37 Was the patient premedicated? Yes 11:14:38 Is patient on blood thinner?Yes 11:14:41 ACC The patient was administered the following blood thiners within the last 24 hours: ACCPlavix 11:14:44 Patient diabetic? No. 11:14:47 Previous problem with sedation/anesthesia? No ? 11:14:49 Snore? Yes 11:14:50 Sleep apnea? No 11:14:51 Opens mouth fully? Yes 11:14:51 Deviated septum? No 11:14:52 Sticks out tongue? Yes 11:14:55 Airway obstruction? No ? 11:15:04 Dentures? Yes partials in tight 11:15:08 Pre procedure: right dorsailis pedis pulse 2+ Normal; easily identifiable; not easily obliterated 11:15:10 Pre procedure: left dorsailis pedis pulse 2+ Normal; easily identifiable; not easily obliterated 11:15:13 Patient pain scale 0/10 ?. 11:17:19 IV patent on arrival in left forearm with 0.9% NaCl at [facility]. 11:17:22 Lab results completed and on chart. 11:20:36 Risk of Mortality: 1.7 11:20:39 Risk of blood transfusion: 2.3 11:20:43 Risk of CLARISSA: 9.6 11:20:52 Right groin area was prepped with chlora-prep and draped in sterile fashion 11:20:53 Sharps counted by scrub and verified by R.N. 11:20:53 Alarms reviewed by R. N. 11:20:55 Physician arrived 11:20:56 Final Timeout: patient, procedure, and site verified with staff and physician. All members of the team are in agreement. 11:20:56 --------ALL STOP TIME OUT------ 11:20:58 Right groin site verified by team. 11:21:02 Fire Safety Assessment: A--An alcohol-based skin anteseptic being used preoperatively., C--Open oxygen or nitrous oxide is being used., D--An ESU, laser, or fiber-optic light is being used. 11:21:05 Physical assessment completed. ASA score P 2 - A patient with mild systemic disease as per Leo Chris MD. 11:21:10 Sedation plan: IV Moderate Sedation Medication:Versed, Fentanyl 11:21:31 Versed 2 mg I.V. was administered by Donna Wilson RN; for sedation; Verbal order read back and verified. 11:21:41 Fentanyl 50 mcg I.V. was administered by Donna Wilson RN; for sedation; Verbal order read back and verified. 11:21:51 Use device set Femoral Dx 11:21:52 Bag Decanter () opened to sterile field. 11:21:52 ACIST Syringe (33813) opened to sterile field. 11:21:53 Medline Cath Pack ([id number]) opened to sterile field. 11:21:54 ACIST Hand Control (23710) opened to sterile field. 11:21:55 ACIST Manifold (92128) opened to sterile field. 11:21:56 DIAGNOSTIC Multipack 5Fr catheter set ([id number]) opened to sterile field. 11:21:57 Tegaderm 4 x 4 (1626W) opened to sterile field. 11:21:58 EMERALD Guide Wire (502-559) opened to sterile field. 11:22:08 SHEATH 6FR [place] (ICJ368) opened to sterile field. 11:27:31 Procedure started. 11::34 Local anesthetic to right femoral artery with Lidocaine 2% by Leo Chris MD.INITIAL ACCESS ONLY 11:27:43 A 6 Fr Short sheath was inserted into the Right Femoral artery 11::47 A MULTIPACK Pigtail 5 Fr catheter was advanced over the wire and used for LV Angiography. 11:28:50 LV hemodynamics recorded. 11::52 LV gram done using DOW 11::54 Injector settings: Ml/sec: 5, Volume: 15, 11:29:01 EF : 25 % 11:29:02 Catheter removed. 11:29:26 A MULTIPACK JL 4.0 5Fr catheter was advanced over the wire and used for Left Coronary Angiography. 11:29:58 LCA angiography performed. 11:30:02 Injector settings: Ml/sec: 3, Volume: 6, 11:31:16 Catheter removed. 11:31:20 A MULTIPACK 3DRC 5Fr catheter was advanced over the wire and used for Multi-vessel Angiography. 11:31:27 BAIG to LAD angiography performed. 11:31:34 RCA angiography performed. 11:31:37 ACCDominant side:Right 11::37 Injector settings: Ml/sec: 3, Volume: 6, 11:32:07 [place] Verrata Plus pressure wire (61207R) opened to sterile field. 11:32:08 INFLATOR Merit BasixCompak (AX0143) opened to sterile field. 11:32:15 Catheter removed. 11:32:16 Proceeding to intervention. 11:32:30 GUIDE 6FR XB 4.0 catheter ([id number]) opened to sterile field. 11:32:45 6 Fr xb 4 guide catheter was inserted over the wire 11:33:00 FFR/IFR wire advanced. 11:33:02 Baseline FFR 1. 11:33:53 Heparin Bolus 4000 units I.V. was administered by Donna Wilson RN; for anticoagulation; verified with Dr. Chris Verbal order read back and verified. 11:34:11 Integrilin (Bolus 2mg/ml) 6.9 ml I.V. was administered by Donna Wilson RN; for antiplatelet therapy; Verbal order read back and verified. 11:34:23 Integrilin (Bolus 2mg/ml) 3.1 ml wasted was administered by Donna Wilson RN; for antiplatelet therapy; Verbal order read back and verified. 11:34:30 Lopressor 5 mg I.V. was administered by Donna Wilson RN; used for procedure; Verbal order read back and verified. 11:34:43 Wire advanced across lesion. 11:36:32 Fentanyl 50 mcg I.V. was administered by Donna Wilson RN; for sedation; Verbal order read back and verified. 11:38:06 mCirc lesion measured at 0.92 with IFR 11:38:18 Wire removed. 11:38:28 CHOICE PT Extra Support 182cm wire ([id number]) opened to sterile field. 11:38:59 choicept wire advanced. 11:40:38 Wire advanced across lesion. 11:44:32 Inflate balloon Inflation number: 1 A Mozec Rx 3.5 x 20 balloon was prepped and advanced across the Prox CX , then inflated to 21 RACHEL for 0:10 (min:sec) . 11:44:38 Inflation number: 2 The Mozec Rx 3.5 x 20 balloon was reinflated across the Prox CX , to 21 RACHEL for 0:10 (min:sec) . 11:44:47 Balloon removed over the wire. 11:45:51 The COBRA RX 2.5 X 15 Stent was advanced then removed because of failure to cross lesion 11:47:02 ACT drawn and resulted at 346 seconds. (normal therapeutic range 180-240 seconds). 11:47:37 Pre PCI Site: [place] dCirc has 90% stenosis. 11:47:37 ACC Pre-intervention CHELSEA Flow is 3. 11:47:38 Place stent Inflation Number: 1 A INTEGRITY RX 2.5 x 14 stent ([id number]) was prepped and advanced across the Dist CX 90. The stent was deployed at 15 RACHEL for 0:10 (min:sec) 0. 11:47:42 Post PCI Site: [place] dCirc has 0% stenosis. 11:47:42 ACC Post-intervention CHELSEA Flow is 3. 11:47:43 Stent catheter was removed intact over wire. 11:47:44 Guide catheter removed. 11:47:44 Wire removed. 11:47:51 EXOSEAL 6Fr (EX600) opened to sterile field. 11:48:11 Sheath removed intact; hemostasis achieved with Exoseal to the Right Femoral artery. 11:48:14 Procedure ended.(Physican Out) 11:54:06 Fluoroscopy time 06.50 minutes. 11:54:10 Fluoroscopy dose: 1203 mGy 11:54:10 Flurop Dose total: 1203 11:54:17 Dose Area Product 65249 mGy/cm. 11:54:32 Contrast amount:Isovue 300 114ml. 11:54:41 Maximum allowable dose exceeded? No. 11:54:42 Sharps counted by scrub and verified by R.N. 11:54:44 Insertion/operative site no bleeding no hematoma. 11:54:47 Post-op/insertion site Right Femoral artery dressed using a 4 x 4 and Tegaderm. 11:54:50 Post right femoral artery:stable 11:54:52 Post Procedure Pulses reassessed and unchanged 11:54:55 Post procedure rhythm: unchanged. 11:54:58 Estimated blood loss: 5 ml 11:55:00 Patient needs reinforcement of post procedure teaching. 11:55:00 Post procedure instruction explained to patient.Patient verbalizes understanding. 11:55:17 Procedure type changed to Cath procedure, Diagnostic procedure, LHC, C w/Coronaries w/Grafts, FFR/IVUS, FFR Initial, Sedation Charges, Moderate Sedation up to 30 minutes, PCI procedure, Coronary Stent, Coronary Stent Initial 11:55:18 Procedure and supply charges have been captured, reviewed, submitted and are correct. 11:55:22 Procedure Complication : No complications 11:55:24 Vital chart was stopped 11:55:26 [facility] Findings: MVD- PCI performed (see procedure note) 11:55:28 See physician's report for complete and final results. 11:55:28 Operative report dictated upon procedure completion. 11:55:32 Report given to [facility]. 11:55:34 Patient transfered to [facility] with Stretcher. 11:55:38 Full Disclosure recording stopped 11:55:38 Procedure ended. 11:55:47 ACC-PCI Only Patient was given prescriptions, or instructed by Leo Chris MD to start/continue the following medications upon discharge: Plavix 11:55:49 End room use (Document Last) 11:57:01 End room use (Document Last) 11:57:44 End room use (Document Last) Intervention Summary Intervention Notes Time ActionType Lesion and Equipment Action# Pressure Duration Attributes Used 11:44:32 Inflate Prox CX Mozec Rx 3.5 1 21 00:10 balloon x 20 balloon 11:44:38 Reinflate Prox CX Mozec Rx 3.5 2 21 00:10 balloon x 20 balloon 11:45:51 Discard COBRA RX 2.5 Stent X 15 Stent 11:47:38 Place stent Dist CX INTEGRITY RX 1 15 00:10 2.5 x 14 stent ([id number]) Device Usage Item Name Manufacture Quantity Catalog Number Hospital Part Current Minimal Lot# / Charge Number Stock Stock Serial# Code ACIST Syringe Acist 1 98253 429455 750106 299328 20 (30615) Medical Systems Inc Bag Decanter Microtek 1 2001S 019459 70511 924270 5 (2001S) Medical Inc. Medline Cath Medline 1 [id number] 510130 84292 812980 5 Pack ([id number]) ACIST Hand Acist 1 18192 150781 682937 797096 5 Control Medical (60695) Systems Inc ACIST Manifold Acist 1 67549 143753 606708 314645 5 (13849) Medical Systems Inc DIAGNOSTIC Cardinal 1 TF2410 506415 84466 837237 30 Multipack 5Fr Health catheter set (RK9465) Tegaderm 4 x 4 3M 1 1626W 114047 843651 236236 5 (1626W) EMERALD Guide Cardinal 1 502-455 048852 924686 800974 5 Wire (502-455) Health SHEATH 6FR Terumo 1 SGD661 591123 394188 928317 40 [place] (MXW539) MULTIPACK Cardinal 1 773403 5 Pigtail 5 Fr Health catheter MULTIPACK JL Cardinal 1 535696 5 4.0 5Fr Health catheter MULTIPACK 3DRC Cardinal 1 945559 5 5Fr catheter Health [place] 1 40967B 380058 066882582 528889 5 Verrata Plus pressure wire (26515L) INFLATOR Merit Merit 1 QN4542 963044 473984 134339 15 [employer] P.[employer].azIntivix Medical (WW2078) GUIDE 6FR XB Cardinal 1 [id number] 286191 185804 157778 2 4.0 catheter Health (89712802) CHOICE PT [place] 1 [id number] 987519 680725 441430 5 Extra Support Scientific 182cm wire ([id number]) Mozec Rx 3.5 x Cardinal 1 [id number] 141881 21440 083749 5 UMOD46 20 balloon Health COBRA RX 2.5 X Celonova 1 802672 [id number] 3992487 8 [id number] 15 stent Biosciences () INTEGRITY RX Medtronic 1 [id number] 878873 708927 610846 5 [id number] 2.5 x 14 stent ([id number]) EXOSEAL 6Fr Cardinal 1 EX600 162956 331260 848702 10 (EX600) Health Signature Audit [place] Stage Time Signature Unsigned Intra-Procedure 02/01/2019 Lina Herrera 11:57:01 AM RT(R) Intra-Procedure 02/01/2019 Donna Wilson 11:57:44 AM RN Intra-Procedure 02/01/2019 Leo Wilson RN 11:58:05 AM 02/01/2019 2:34:44 PM Intra-Procedure 02/01/2019 Donna Wilson 2:36:54 PM RN Intra-Procedure 02/01/2019 Leo Chris 2:37:[address] [address]
[2019-02-01 02:36] LABS: BASOPHILS 0.1 % (0-2); EOSINOPHILS 3.3 % (0-7); HEMATOCRIT 44.4 % (42.0-54.0); HEMOGLOBIN 14.6 g/dL (13.5-17.5); IMMATURE GRANULOCYTES 0.1 % (0-5); LYMPHOCYTES 46.4 % (15-50); MCH 31.4 pg (26.0-34.0); MCHC 32.9 g/dL (31.0-37.0); MCV 95.5 fL (80.0-100.0); MEAN PLATELET VOLUME 10.3 fL (7.4-10.4); MONOCYTES 6.9 % (2-11); NEUTROPHILS 43.2 % (40-80); PLATELET COUNT 159 10x3/uL (130-400); RBC 4.65 10x6/uL (4.20-6.10)
[2019-02-01 02:50] LABS: CALC OSMOLALITY 288 mosm/kg (275-300); CALCIUM 10.1 mg/dL (8.5-10.1); CARBON DIOXIDE 28.3 mmol/L (21.0-32.0); CHLORIDE - SERUM 105 mmol/L (98-107); CREATININE - SERUM 1.3 mg/dL (0.6-1.3); GLUCOSE 133 mg/dL (74-106); SODIUM 143 mmol/L (136-145); UREA NITROGEN 17 mg/dL (7-18); eGFR NON AFRICAN AMERICAN 56 mL/min (90-120)
[2019-02-01 03:01] LABS: APTT 32.4 SECONDS (22.8-39.4); INR 0.99 (0.85-1.17); PROTIME 12.6 SECONDS (11.6-15.0)
[2019-02-01 03:07] LABS: ALBUMIN 4.3 g/dL (3.4-5.0); ALKALINE PHOSPHATASE 74 U/L (46-116); ALT (SGPT) 25 U/L (10-68); BILIRUBIN - TOTAL 0.78 mg/dL (0.2-1.3); CKMB 3.8 U/L (0.0-3.6); CREATINE KINASE 231 UL (21-232); MAGNESIUM - SERUM 2.1 mg/dL (1.8-2.4)
[2019-02-01 03:08] LABS: TROPONIN-I < 0.017 ng/mL (0.000-0.060)
--- NOTE | 2019-02-01 03:24 | NUR ---
PATIENT REFUSES TO TAKE ASPIRIN, HAS HAD AN ADVERSE REACTION LAST TIME HE TOOK IT. PATIENT ALSO REFUSES TO TAKE ANY PAIN MEDICATION.
[2019-02-01 03:30] VITALS: BP 149/81
[2019-02-01 04:30] VITALS: BP 162/82; BMI 26.5
[2019-02-01 09:46] LABS: CREATINE KINASE 224 UL (21-232)
[2019-02-01 10:04] LABS: TROPONIN-I 0.778 ng/mL (0.000-0.060)
[2019-02-01 10:26] VITALS: Ht 180.3 cm; Wt 86.4 kg
--- NOTE | 2019-02-01 10:58 | NUR ---
CONSENTS SIGNED. PRE-OPS GIVEN. TO CLAY MOLDER BY BED.
[2019-02-01 11:06] VITALS: BP 157/71
--- NOTE | 2019-02-01 12:15 | NUR ---
BACK FROM TELEPHONE INSTRUMENT SUPERVISOR. VS WNL. RIGHT GROIN STABLE WITHOUT BLEEDING OR HEMATOMA NOTED. WILL MONITOR.
[2019-02-01] MEDS ORDERED: PRAVACHOL20 MG PO ×2 (13:47→13:49)
[2019-02-01] MEDS ORDERED: BAYER CHEWABLE81 MG PO (13:47)
[2019-02-01] MEDS ORDERED: METOPROLOL TART50 MG PO (13:48)
--- NOTE | 2019-02-01 14:04 | NUR ---
PATIENT HAS NOT HAD FLU SHOT THIS YEAR. WHEN QUESTIONED IF HE WANTS ONE, HE REPLIED, "I USUALLY WAIT TILL MMIDDLE OF FEBRUARY".
[2019-02-01 15:44] LABS: CKMB 5.9 U/L (0.0-3.6); CREATINE KINASE 235 UL (21-232)
[2019-02-01 15:48] LABS: TROPONIN-I 0.942 ng/mL (0.000-0.060)
--- NOTE | 2019-02-01 16:31 | NUR ---
BED REST UP. GROIN STABLE. IV AND TELEMETRY DCD. DC PLANS GIVEN. UNDERSTANDING VOICED. ESCORTED TO CAR BY W/C.
--- NOTE | 2019-02-07 11:41 | OP ---
PATIENT NAME: ANTWON TIRADO MEDICAL RECORD: [id number] :37 LOCATION:[facility] ADMISSION DATE: SURGEON: YA LUONG MD DATE OF OPERATION: 02/01/2019 PROCEDURES: 1. PTCA stent left circumflex. 2. Left heart catheterization. 3. Selective coronary angiography. 4. Left ventriculogram. 5. IFR. PROCEDURE IN DETAIL: After informed consent was obtained and after a detailed description of risks, benefits as well as alternative therapies, the patient elected to proceed with angiogram and angioplasty. The right femoral area was prepped and draped in normal sterile fashion. Right femoral artery was cannulated via modified Seldinger technique with placement of 6-Estonian sheath. All catheters exchanged through this sheath. FINDINGS: Left ventriculogram was performed in standard 30-degree DOW view, reveals global hypokinesis, ejection fraction in the 30% range. SELECTIVE CORONARY ANGIOGRAPHY: 1. Left main is with no significant angiographic disease. 2. Left anterior descending is totally occluded. 3. BAIG to the LAD is widely patent. 4. Left circumflex has previously placed stents, these are widely patent. There was a questionable stenosis in the first obtuse marginal; however, IFR was normal. There is a 90% stenosis in the terminal obtuse marginal responsible for the non-Q-wave myocardial infarction. 5. Right coronary artery is small, nondominant. PTCA STENT OF THE LEFT CIRCUMFLEX: The stent used 2.5 x 14 mm Integrity. The result was 0% residual stenosis. OVERALL IMPRESSION: Successful percutaneous transluminal coronary angioplasty stent of the circumflex going from 90% initial stenosis to 0% residual. TRANSINT:[id number] Voice Confirmation ID: [id number] DOCUMENT ID: [id number] YA LUNOG MD at 1141 CC: [id number] DICTATION DATE: 02/01/19 1152 HOME VISITOR: 02/01/19 1158 [facility] CLI 02/01/[address] [address]
--- NOTE | 2019-02-07 11:41 | HP ---
PATIENT: ANTWON COVARRUBIAS MEDICAL RECORD: [id number] ACCOUNT: [id number] LOCATION:[facility] : 37 ADMISSION DATE: 02/01/19 PCP: No PCP HISTORY AND PHYSICAL EXAMINATION DIAGNOSES: 1. Non-Q-wave myocardial infarction. 2. Coronary artery disease. 3. Previous percutaneous transluminal coronary angioplasty stent. HISTORY OF PRESENT ILLNESS: Mr. Covarrubias presents with 1 day of chest pain. Troponin is positive for non-Q-wave myocardial infarction. He continues to have chest discomfort this morning. He has a past history of coronary artery disease, previous stenting approximately 4 years ago. PHYSICAL EXAMINATION: CONSTITUTIONAL/GENERAL APPEARANCE: Well nourished, well developed, appears stated age. EYES: Lids and conjunctivae noninjected. No discharge. No pallor. ENT: Lips within normal limit. No cyanosis. No pallor. NECK: Carotid arteries, bilateral normal upstroke. No bruits. No thrills. No jugular venous pressure or distention. CERVICAL LYMPH NODES: Nontender. Nonenlarged. THYROID: Not enlarged. No nodules. CARDIOVASCULAR: Precordial exam, nondisplaced. No heaves or pericardial thrills. Rate and rhythm, regular. Heart sounds, normal S1, normal S2. No S3, no gallop, no rub. Systolic murmur, not heard. Diastolic murmur, not heard. RESPIRATORY: Respiratory effort, unlabored. Normal curvature. No thoracic deformity. No chest wall tenderness. Percussion, resonant. Auscultation, clear. No wheezes, no rales, no rhonchi. ABDOMEN: Soft, nondistended, nontender. No abdominal pain, no vomiting and normal appetite. MUSCULOSKELETAL: No joint tenderness, normal gait, normal tone. SKIN: Warm and dry. OVERALL IMPRESSION: Non-Q-wave myocardial infarction with continued chest pain. At this time, we will add a beta pete to his medical regimen, proceed with coronary angiography. TRANSINT:[id number] Voice Confirmation ID: [id number] DOCUMENT ID: [id number] YA LUONG MD at 1141 CC: [id number] DICTATION DATE: 02/01/19 1021 PARKING ENFORCEMENT TECHNICIAN: 02/01/19 1034 [facility] CLI 02/01/19 [facility] [address] [place] [address]
--- NOTE | 2019-02-07 11:41 | DS ---
PATIENT:ANTWON COVARRUBIAS :37 MEDICAL RECORD: [id number] DISCHARGE SUMMARY ADMISSION DATE: 02/01/19 DISCHARGE DATE: 02/01/19 DIAGNOSES: 1. Non-Q-wave myocardial infarction. 2. Percutaneous transluminal coronary angioplasty stent of left circumflex this admission. 3. Hypertension. 4. Hyperlipidemia. 5. Cardiomyopathy. HOSPITAL COURSE: Mr. Covarrubias presents with chest pain and non-Q-wave myocardial infarction, underwent cardiac catheterization revealing significant disease of dominant circumflex in the distal vessel, underwent successful PTCA stent, discharged home with the addition of Pravachol, Lopressor, and Plavix to his medical regimen. There is a question of him taking Plavix as a home medication. He has had macular bleeding in the past and he stated he was off Plavix. We have reinstituted the Plavix. He had a bare metal stent due to the fact that he has not tolerated long-term anticoagulation. He will need 30 days of Plavix, which he can be discontinued thereafter for any further macular bleeding. Follow up with [facility] in 1 month. TRANSINT:[id number] Voice Confirmation ID: [id number] DOCUMENT ID: [id number] YA LUONG MD at 1141 CC: [id number] DICTATION DATE: 02/01/19 1150 MARKETING INSTRUCTOR: 02/02/19 0009 [facility] CLI 02/01/19 [facility] [address] [place] [address]
== END 2019-02-01 16:33 | disposition home or self-care (01) ==
LOC: D.ER 02:02 → D.OPS 02:02 → D.M2 02:32 → D.ER 02:32 → D.OPS 16:33 → D.M2 16:33 → EDSTATUS 16:43
PROVIDERS: Family Medicine; ATTEND Internal Medicine Interventional Cardiology
PROC: B2111ZZ Fluoroscopy of Multiple Coronary Arteries using Low Osmolar Contrast (ICD-10-PCS; 2019-02-01)
PROC: B2151ZZ Fluoroscopy of Left Heart using Low Osmolar Contrast (ICD-10-PCS; 2019-02-01)
PROC: 4A033BC Measurement of Arterial Pressure, Coronary, Percutaneous Approach (ICD-10-PCS; 2019-02-01)
PROC: 02703DZ Dilation of Coronary Artery, One Artery with Intraluminal Device, Percutaneous Approach (ICD-10-PCS; principal; 2019-02-01 11:06)
PROC: 4A023N7 Measurement of Cardiac Sampling and Pressure, Left Heart, Percutaneous Approach (ICD-10-PCS; 2019-02-01 11:06)
DX: I21.4 Non-ST elevation (NSTEMI) myocardial infarction (principal); I42.9 Cardiomyopathy, unspecified; I25.10 Atherosclerotic heart disease of native coronary artery without angina pectoris; I10 Essential (primary) hypertension; E78.5 Hyperlipidemia, unspecified